=== PATIENT | female | born 1990 | race Caucasian/White ===

== ENCOUNTER → 2016-05-31 | Outpatient (CLI) | payer OTHER ==
[~2016-05-31] MED LIST: CLON1TAB3 PO
== END | disposition home or self-care (01) ==
LOC: C.PATHSPEC 17:41
PROVIDERS: ATTEND Plastic Surgery
DX: L72.0 Epidermal cyst (principal)

== ENCOUNTER → 2016-06-27 | Outpatient (CLI) | payer OTHER ==
[2016-06-27 17:27] LABS: HEPATITIS B AB POS
== END | disposition home or self-care (01) ==
LOC: C.LABBFT 12:20
PROVIDERS: ATTEND Internal Medicine
DX: Z20.5 Contact with and (suspected) exposure to viral hepatitis (principal); Z11.3 Encounter for screening for infections with a predominantly sexual mode of transmission

== ENCOUNTER → 2016-09-05 | Outpatient (CLI) | payer OTHER ==
[2016-09-08 00:33] LABS: CHLAMYDIA TRACH RNA*** NOT DETECTED (NOT DETECTED); GC (NEIS GONORRHOEAE)RNA** NOT DETECTED (NOT DETECTED)
== END | disposition home or self-care (01) ==
LOC: C.LABSPEC 17:33
PROVIDERS: ATTEND Physician Assistant
DX: Z01.419 Encounter for gynecological examination (general) (routine) without abnormal findings (principal)

== ENCOUNTER → 2016-09-05 | Outpatient (CLI) | payer OTHER | END | disposition home or self-care (01) | LOC: C.PAPS 08:11 | PROVIDERS: ATTEND Physician Assistant | DX: Z01.411 Encounter for gynecological examination (general) (routine) with abnormal findings (principal); R87.610 Atypical squamous cells of undetermined significance on cytologic smear of cervix (ASC-US) ==

== ENCOUNTER → 2017-04-02 | Outpatient (CLI) | payer OTHER ==
[2017-04-02 18:44] LABS: URINE APPEARANCE CLEAR (CLEAR); URINE BILIRUBIN NEG (NEG); URINE COLOR YELLOW; URINE NITRITE NEG (NEG); URINE SPECIFIC GRAVITY 1.021 (1.000-1.030); UROBILINOGEN NEG (NEG)
[2017-04-02 18:47] LABS: MANUAL MICROSCOPIC REQUIRED? NO; REVIEW REQ? NO
== END | disposition home or self-care (01) ==
LOC: C.LABSPEC 17:27
PROVIDERS: ATTEND Obstetrics & Gynecology
DX: O09.299 Supervision of pregnancy with other poor reproductive or obstetric history, unspecified trimester (principal); Z3A.00 Weeks of gestation of pregnancy not specified

== ENCOUNTER → 2017-04-04 | Outpatient (CLI) | payer OTHER ==
[2017-04-04 16:40] LABS: BASO % 0.3 %; BASO ABS # 0.03 K/uL (0-0.2); COMPLETE YES; EOS % 4.2 %; HEMATOCRIT 35.2 % (37-47); IG% 0.3 %; LYMPH % 19.5 %; LYMPH ABS # 2.25 K/uL (1.2-3.4); MEAN CELL VOLUME 92.6 fL (80-100); MEAN CORPUSCULAR HEMOGLOBIN 31.1 pg (25-34); MEAN CORPUSCULAR HGB CONC 33.5 g/dl (32-36); MEAN PLATELET VOLUME 10.8 fL (7.4-10.4); MONO % 7.5 %; NEUT % 68.2 %; PLATELET COUNT 276 K/uL (130-400); WHITE BLOOD COUNT 11.51 K/uL (4.8-10.8)
[2017-04-07 04:29] LABS: CHLAMYDIA TRACH RNA*** NOT DETECTED (NOT DETECTED); GC (NEIS GONORRHOEAE)RNA** NOT DETECTED (NOT DETECTED)
== END | disposition home or self-care (01) ==
LOC: C.LAB1850 15:33
PROVIDERS: ATTEND Obstetrics & Gynecology
DX: Z34.91 Encounter for supervision of normal pregnancy, unspecified, first trimester (principal); Z3A.00 Weeks of gestation of pregnancy not specified

== ENCOUNTER → 2017-05-23 | Outpatient (CLI) | payer OTHER | END | disposition home or self-care (01) | LOC: C.LAB1850 15:49 | PROVIDERS: ATTEND Obstetrics & Gynecology | DX: Z34.02 Encounter for supervision of normal first pregnancy, second trimester (principal); Z3A.00 Weeks of gestation of pregnancy not specified ==

== ENCOUNTER → 2017-08-13 | Outpatient (CLI) | payer OTHER ==
[2017-08-13 15:36] LABS: HEMATOCRIT 33.4 % (37-47); HEMOGLOBIN 11.2 g/dL (12.0-16.0)
== END | disposition home or self-care (01) ==
LOC: C.LAB1850 14:13
PROVIDERS: ATTEND Obstetrics & Gynecology
DX: Z34.02 Encounter for supervision of normal first pregnancy, second trimester (principal)

== ENCOUNTER 2020-07-10 20:04 | Inpatient (IN) ==
[2020-07-10] MEDS: LACTATED RINGER'S 1,000 ML IV PRN ×2 (21:05→23:17)
[2020-07-10] MEDS ORDERED: PENICILLIN G POTASSIUM 3 MU in DEXTROSE 5% 100 ML IV PRN (21:16)
[2020-07-10] MEDS ORDERED: OXYTOCIN 30 UNITS/500 ML BAG IV PRN ×2 (21:16→21:57)
--- NOTE | 2020-07-10 21:21 | History & Physical Report ---
Date of Service July 10, 2020 Assessment & Plan (1) : 30 y/o at 40 wga presenting with PROM, stable 1. VSS 2. Fetus cat 1 3. Labor - no s/s of active labor currently, pt very comfortable. Offered expectant management with possibility of needing augmentation vs starting augmentation, pt would like to start augmentation 4. GBS + urine, PCN started 5. Desires epidural PRN 6. Previously COVID +, outside of the window of isolation and within window that does not need to be retested. Currently asymptomatic History of Present Illness Chief Complaint: SROM Primary Care Provider: MALIA Gonzalez 30 y/o at 40 wga w/ GAIL 07/10/20 by 1st tri US inconsistent w/ LMP who presents after gush of fluid around 630pm this evening and continued LOF. +FM and rare contractions, denies VB. PNI: GBS+ urine COVID+ 1/ Rh- Past SERVICE TECH Hx: G1 2014 MAB, required D&E G2 at 38 wks G3 SAB G4 current Menarche 18, periods previously regular Last pap 10/2019 neg cytology; hx LSIL and colpo Hx chlamydia 2+ years ago and hx HPV, no other STIs Allergies Allergy/AdvReac Type Severity Reaction Status Date / Time No Known Drug Allergies Allergy Unknown Verified 07/10/20 20:27 Home Medications Medication Instructions Recorded Confirmed Type prenat.vits,kieran,ukt-byfw-eifyq 1 tab PO DAILY 12/30/18 07/10/20 History breast pump #1 ea 06/21/20 07/07/20 Rx Patient History Medical History 38 weeks gestation of Amenorrhea Encounter for anatomic survey Exposure to hepatitis C H/O cardiac murmur H/O chlamydia infection H/O human papillomavirus infection H/O miscarriage, currently 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 Mood disorder Normal labor Positive urine test exam Supervision of normal Varicella vaccination Surgical History Encounter for removal of sutures S/P dilation and curettage S/P tonsillectomy Family History Mother Attention deficit hyperactivity disorder (ADHD) Bipolar disorder Hypertension Osteoporosis Hepatitis C virus Hypercholesteremia Grandmother (Maternal) Breast cancer Diabetes Uncle Colorectal cancer Grandfather (Maternal) Colorectal cancer Father Diabetes Aunt Ovarian cancer Social History Smoking Status: Former smoker Second Hand Exposure: Yes; Hx Alcohol Use: No Hx Substance Use: No Preferred Language: French Communication Ability: Effective Director Industrial Relations Required: No Beliefs That Will Affect Care: None marital status: Single marital status details: Jey Gooden (29) [phone] Current Living Situation: Significant Other Current Living Situation Comment: apartment with FOB and daughter current occupational status: unemployed current occupation: homemaker Other Information That Helps Us Care for You: No Feels Safe at Home: Yes Safety Concerns: Feels Safe At This Time Assistive Devices: Glasses Physical Exam Constitutional: WD/WN, vitals as above Respiratory: normal respiratory effort; no respiratory distress and no labored breathing Genitourinary: OB Exam Abdomen: + vertex (confirmed by BSUS) and + estimated weight (7-8lbs) Manual OB Exam: + cervical dilation 4 cm, + cervical effacement 50%, + station high and + amniotic fluid (Grossly ruptured) nitrazine positive OB Exam Monitor Tracing: + external FHT monitor used, + external uterine monitor used (rare ctx) and + category I (140/mod/+accel/-decel) Results & Data ([facility]) Vital Signs (Past 12 Hours) Vital Signs Temp Pulse Resp BP 07/10/20 20:28 98.8 F 18 07/10/20 20:23 98.8 F 18 07/10/20 20:22 81 135/82 Laboratory Results OB Labs: Blood Type A Negative 11/21/19 Antibody Screen NEGATIVE 04/19/20 Hemoglobin 11.6 g/dL (12.0-16.0) L 04/19/20 Hematocrit 35.1 % (37-47) L 04/19/20 Mean Corpuscular Volume 90.6 fL (80-100) 11/21/19 Platelet Count 288 K/uL (130-400) 11/21/19 Rubella IgG Antibody Immune (Immune) 11/21/19 Rapid Plasma Reagin Nonreactive (Nonreactive) 11/21/19 Hepatitis B Surface Antigen Neg (Neg) 11/21/19 HIV (1&2) Ab and P24 Ag, 4th Gener Neg (Neg) 11/21/19 Glucose 1 Hour 50 gm Load 96 mg/dl (70-130) 04/19/20 OB Optional Labs: Chlamydia trachomatis RNA NOT DETECTED (NOT DETECTED) 11/21/19 Neisseria gonorrhoeae RNA NOT DETECTED (NOT DETECTED) 11/21/19 declines cf/sma declines all genetics GBS+ urine COVID+ 06/03 Diagnostic Findings Ant placenta Code Status & VTE Plan VTE Prophylaxis Plan VTE Prophylaxis will be ordered: Yes Coding Level of Care Code None Diagnoses Z34.90
[2020-07-10] MEDS ORDERED: PENICILLIN G POTASSIUM 6 MU in DEXTROSE 5% 250 ML IV ONE (21:45)
[2020-07-10 21:55] LABS: Hematocrit (blood only) 35.5 % (37-47); Hemoglobin 11.9 g/dL (12.0-16.0); Mean Corpuscular Hemoglobin 30.7 pg (25-34); Mean Corpuscular Hgb Conc 33.5 g/dL (32-36); Mean Corpuscular Volume 91.7 fL (80-100); Mean Platelet Volume 12.4 fL (7.4-10.4); Platelet Count 190 K/uL (130-400); Red Blood Count 3.87 M/uL (4.2-5.4); White Blood Count 11.54 K/uL (4.8-10.8)
[2020-07-10] MEDS ORDERED: SODIUM CHLORIDE 0.9% INJ 10 ML VIAL ONE (22:12)
[2020-07-10] MEDS ORDERED: BUPIVACAINE 0.25% 30 ML VIAL ONE (22:12)
[2020-07-10] MEDS ORDERED: ePHEDrine sulfate 50 MG/ML AMP ONE (22:12)
[2020-07-10] MEDS ORDERED: fentaNYL 2MCG/ML ROPIVACAINE 1.25MG/ML 100 ML BAG EPI ONE (22:13)
[2020-07-10] MEDS ORDERED: fentaNYL citrate 100 MCG/2 ML VIAL ONE (22:13)
[2020-07-10] MEDS ORDERED: diphenhydrAMINE 50 MG/ML VIAL IV PRN (22:26)
[2020-07-10] MEDS ORDERED: ePHEDrine sulfate 50 MG/ML AMP IV PRN (22:26)
[2020-07-10] MEDS ORDERED: ONDANSETRON INJ 2 MG/ML 2 ML VIAL IV PRN (22:26)
[2020-07-10] MEDS ORDERED: NALOXONE HCL 0.4 MG/1 ML VIAL/CARP IV PRN (22:26)
[2020-07-10] MEDS ORDERED: fentaNYL 2MCG/ML ROPIVACAINE 1.25MG/ML 100 ML BAG EPI PRN (22:26)
[2020-07-10] MEDS ORDERED: NALOXONE HCL 1 MG in SODIUM CHLORIDE 0.9% 1000ML 1,000 ML IV PRN (22:26)
--- NOTE | 2020-07-10 22:30 | Anesthesiology Consultation ---
Date of Service July 10, 2020 The patient was positive for Covid 19 in May 2020. Assessment & Plan Chart Review Chart Review: Patient NOT seen in Pre Admission Testing and Acceptable Risk for Labor Epidural Consults Requested none ASA ASA2 Proposed Anesthesia Anesthesia Type: Labor Epidural and CSE Risk / Benefits Reviewed With: PT / POA / Parent / Guardian, Accepts Plan and Informed Consent Obtained History Height/Weight Height: 5 ft 3 in Weight: 68.946 kg Allergies Allergy/AdvReac Type Severity Reaction Status Date / Time No Known Drug Allergies Allergy Unknown Verified 07/10/20 20:27 Medications Home Medications Medication Instructions Recorded Confirmed Last Taken prenat.vits,kieran,rio-tgag-zegtl 1 tab PO DAILY 12/30/18 07/10/20 07/10/20 breast pump #1 ea 06/21/20 07/07/20 Unknown Active Medications Generic Name Dose Route Start Last Admin Trade Name Freq PRN Reason Stop Dose Admin Penicillin G Potassium 6 mu/ 262 mls @ 262 mls/hr 07/10/20 21:45 07/10/20 21:51 Dextrose IV 07/10/20 22:44 262 mls/hr NOW ONE Administration Lactated Ringer's 1,000 mls @ 125 mls/hr 07/10/20 21:16 07/10/20 22:18 Lr IV 07/12/20 21:15 999 mls/hr .Q8H PRN Infusion L&D Protocol Protocol NPO Date Last Intake of Fluids: 07/10/20 Time Last Intake of Fluids: 15:00 Date Last Intake of Solids: 07/10/20 Time Last Intake of Solids: 15:00 Past Medical History Medical History 38 weeks gestation of Amenorrhea Encounter for anatomic survey Exposure to hepatitis C H/O cardiac murmur H/O chlamydia infection H/O human papillomavirus infection H/O miscarriage, currently 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 Mood disorder Normal labor Positive urine test exam Supervision of normal Varicella vaccination Exercise / Class Metabolic Activity II 4-5 Yardwork/Stairs/Walk up hill Past Family History Family History Mother Attention deficit hyperactivity disorder (ADHD) Bipolar disorder Hypertension Osteoporosis Hepatitis C virus Hypercholesteremia Grandmother (Maternal) Breast cancer Diabetes Uncle Colorectal cancer Grandfather (Maternal) Colorectal cancer Father Diabetes Aunt Ovarian cancer Past Surgical History Surgical History Encounter for removal of sutures S/P dilation and curettage S/P tonsillectomy Past Anesthesia History No Hx of Anesthesia Complications and No Family Hx of Anesthesia Complications History of PONV No Hx of PONV and No Hx of Motion Sickness Social History Smoking Status: Former smoker Hx Alcohol Use: No Hx Substance Use: No Review of Systems no chest pain or sob Physical Exam Vital Signs Last Vital Signs Temp 36.3 C L 07/10/20 22:18 Pulse 73 07/10/20 22:26 Resp 18 07/10/20 22:18 BP 119/75 07/10/20 22:18 Pulse Ox 100 07/10/20 22:26 ENMT Mouth: no TMJ abnormality Thyromental Distance: > or= 3.5 Finger Breadths Mallampati Class: II Neck normal visual inspection Respiratory normal respiratory effort Auscultation: lungs clear to auscultation bilaterally Cardiovascular Rate/Rhythm: regular rate and regular rhythm Musculoskeletal Spine: normal cervical ROM Neurologic moves all extremities Psychiatric Orientation: alert and oriented x 3 Testing Laboratory Results 07/10/20 21:39
--- NOTE | 2020-07-11 00:16 | Labor Progress Brief Note ---
Date of Service July 11, 2020 Subjective Comfortable w/ epidural per pt request Assessment & Plan (1) : 30 y/o at 40 1/7wga presenting with PROM, stable 1. VSS 2. Fetus cat 1 3. Labor - planned to start pit however unable to start yet due to staffing, will start now 4. GBS + urine, PCN started 5. Desires epidural Admission and Anticipated Discharge Date Admission Date: July 10, 2020 Physical Exam Constitutional: WD/WN, vitals as above Respiratory: normal respiratory effort; no respiratory distress and no labored breathing Genitourinary: Manual OB Exam: + cervical dilation 4 cm, + cervical effacement 50% and + station high OB Exam Monitor Tracing: + external FHT monitor used, + external uterine monitor used (q8) and + category I (140/mod/+accel/-decel) Results & Data ([facility]) Vital Signs (Past 12 Hours) Vital Signs Temp Pulse Resp BP Pulse Ox 07/11/20 00:11 58 L 100 07/11/20 00:06 67 100 07/11/20 00:01 64 96 07/11/20 00:00 16 07/10/20 23:56 61 100 07/10/20 23:51 57 L 99 07/10/20 23:46 55 L 99 07/10/20 23:45 55 L 112/62 07/10/20 23:41 56 L 98 07/10/20 23:36 56 L 99 07/10/20 23:31 58 L 98 07/10/20 23:30 16 07/10/20 23:28 56 L 105/59 L 07/10/20 23:26 56 L 99 07/10/20 23:21 56 L 99 07/10/20 23:16 64 98 07/10/20 23:15 60 99/54 L 07/10/20 23:11 60 99 07/10/20 23:06 59 L 99 07/10/20 23:01 61 99 07/10/20 23:00 18 07/10/20 22:57 65 105/56 L 07/10/20 22:56 65 100 07/10/20 22:55 66 100/53 L 07/10/20 22:54 68 103/54 L 07/10/20 22:52 68 107/57 L 07/10/20 22:51 73 99 07/10/20 22:49 63 106/74 07/10/20 22:47 65 108/65 07/10/20 22:46 70 99 07/10/20 22:45 64 106/61 07/10/20 22:43 69 131/79 07/10/20 22:41 78 125/73 100 07/10/20 22:39 85 133/79 07/10/20 22:36 72 100 07/10/20 22:31 69 100 07/10/20 22:26 73 100 07/10/20 22:21 71 99 07/10/20 22:18 97.3 F L 74 18 119/75 07/10/20 22:16 72 98 07/10/20 20:28 98.8 F 18 07/10/20 20:23 98.8 F 18 07/10/20 20:22 81 135/82 Coding Level of Care Code None Diagnoses Z34.90
--- NOTE | 2020-07-11 02:58 | Delivery Summary ---
Vaginal Delivery Summary Date of Service July 11, 2020 PREOPERATIVE DIAGNOSIS: 1. Single intrauterine at 40 1/7 wga 2. Prelabor rupture of membranes 3. GBS + POSTOPERATIVE DIAGNOSIS: 1. Single intrauterine at 40 1/7 wga 2. Prelabor rupture of membranes 3. GBS + 4. Delivered PROCEDURE: 1. Normal spontaneous vaginal delivery. SURGEON: Brittany Nevarez MD ANESTHESIA: Epidural. ESTIMATED BLOOD LOSS: 300 mL COMPLICATIONS: None. CONDITION: Stable. INDICATIONS: 30 y/o at 40 wga w/ GAIL 07/10/20 presented after spontaneous rupture of membranes. +FM; denies ctx or VB. She was started on penicillin for known GBS+ status by urine. She received an epidural for pain control. She did require pitocin augmentation and very rapidly progressed to complete and desired to push FINDINGS: A viable male , weight pending, with Apgars of 9 and 9 at 1 and 5 minutes respectively. SPECIMEN: Cord blood OPERATIVE REPORT: The patient progressed to 10 cm, 100% effaced and +2 station, pushed over intact perineum with anesthesia to deliver a viable male infant, weight and Apgars as above. Head of delivered in SAM position. No nuchal cord was present. Body and shoulders were delivered without difficulty. was delivered to maternal abdomen and nursing staff. Delayed cord clamping was performed for 60 seconds. Cord was clamped and cut. Cord blood was obtained. Placenta delivered spontaneously intact with 3-vessel cord. IV oxytocin and fundal massage were given for excellent hemostasis. Vagina, cervix, perineum, and placenta were inspected. A hemostatic first degree laceration was noted and not needed to be repaired. Sponge and needle counts correct x2. No sponges were left behind. Mother and stable in immediate period. Vaginal Delivery Summary and 1st Degree LAC [facility] [place] Vaginal Delivery Charge Vaginal Delivery Codes: 34796 global code for the antepartum, delivery, and post- Delivery Type Details: and 1st Degree LAC
[2020-07-11] MEDS ORDERED: OXYTOCIN 30 UNITS/500 ML BAG IV PRN (03:07)
[2020-07-11] MEDS ORDERED: bisacodyL 10 MG SUPP PR PRN (03:07)
[2020-07-11] MEDS ORDERED: BENZOCAINE 20% AER SPR 82.5 GM CAN EXT PRN (03:07)
[2020-07-11] MEDS ORDERED: DIPHTHERIA/TETANUS/PERTUSSIS 0.5 ML SYR/VIAL IM ONE (03:07)
[2020-07-11] MEDS ORDERED: HYDROCORTISONE ACETATE 25 MG SUPP PR PRN (03:07)
[2020-07-11] MEDS ORDERED: SUPERCREAM 0.870% 15 GM JAR EXT PRN (03:07)
[2020-07-11] MEDS ORDERED: IBUPROFEN 600 MG TAB PO ONE (03:09)
[2020-07-11] MEDS: PRENATAL VITAMIN 1 TAB PO SCH (08:59)
[2020-07-11] MEDS: DOCUSATE SODIUM 100 MG CAP PO SCH ×2 (08:59→20:33)
[2020-07-11] MEDS: FERROUS SULFATE 325 MG TAB PO SCH (08:59)
[2020-07-11] MEDS: IBUPROFEN 600 MG TAB PO PRN ×3 (08:59→23:32)
--- NOTE | 2020-07-11 09:20 | Anesthesia Procedure Note ---
Date of Service July 11, 2020 Anesthesia Post Epidural Note Vital Signs Vital Signs: Temp Pulse Resp BP Pulse Ox 36.3 C L 65 20 115/67 98 07/11/20 05:00 07/11/20 05:00 07/11/20 05:00 07/11/20 05:00 07/11/20 05:00 Pain Intensity Head: Pain Intensity: 1 Notes Mental Status: alert / awake / arousable and participated in evaluation Nausea / Vomiting: adequately controlled Pain: adequately controlled Airway Patency, RR, SpO2: stable & adequate BP & HR: stable & adequate Hydration State: stable & adequate Neuraxial Anesthesia: was administered and sensory block is resolving Anesthetic Complications: no major complications apparent Epidural: Removed without complications and With tip intact
[2020-07-11] MEDS: ACETAMINOPHEN 325 MG TAB PO PRN ×2 (11:37→19:37)
[2020-07-12] MEDS: ACETAMINOPHEN 325 MG TAB PO PRN (02:27)
--- NOTE | 2020-07-12 06:03 | Obstetrical Progress Note ---
Date of Service <Jase Durán MD - Last Filed: 07/12/20 07:01> July 12, 2020 Assessment & Plan <Jase Durán MD - Last Filed: 07/12/20 07:01> (1) state: 30 y/o s/p at 40w1d, PPD1. A neg. Ab screen neg. Rubella immune. GBS+ urine, s/p PCN. - pain is moderate and lochia moderate-large - - continue routine care - dispo home today. will review care instructions - f/u in office at 6 wks (2) Need for rhogam due to Rh negative mother: - needs rhogam. baby is O+ Subjective <Jase Durán MD - Last Filed: 07/12/20 07:01> Ambulation: ambulating normally Voiding: no voiding problems Passing Gas:: Yes Diet Tolerance:: regular diet Lochia:: Moderate (has to change pad during every urination. some slowing down. initially rated large) Feeding Type:: breast feeding (didn't eat from 10pm to 6am. gassy. feeding now) Current Pain Level(1-10): 5 (worsened by nursing mostly. slight improvement) Prefers earlier dispo. Review of Systems Denies fever, chills, sweats Denies shortness of breath, chest pain, palpitations. mild nipple soreness Denies dysuria. Denies headache or changes in vision. Denies nausea/vomiting. Denies numbness, tingling, weakness. Physical Exam <Jase Durán MD - Last Filed: 07/12/20 07:01> General: Alert, oriented. No acute distress. Cardiac: Regular rate and rhythm, no murmurs/rubs/gallops. Respiratory: Clear to auscultation bilaterally, no wheezes/rales/rhonchi. No respiratory distress. Abdomen: , soft, nontender. Uterus: Uterine fundus firm, palpable 2cm below umbilicus. Lower Extremities: No lower extremity edema or swelling. No deep calf pain. Deepti's negative bilaterally. Results & Data ([facility]) <Jase Durán MD - Last Filed: 07/12/20 07:01> Vital Signs (Past 12 Hours) Vital Signs Temp Pulse Pulse Resp BP BP Pulse Ox 02/14/21 23:15 36.7 C 68 16 118/72 98 07/11/20 20:10 36.7 C 74 18 130/77 07/11/20 19:28 36.7 C 74 16 130/77 Medications Administered <Brittany Nevarez MD - Last Filed: 07/12/20 07:12> Co-Signing Physician Notes Resident Physician Supervision Note: I interviewed and examined the patient. Discussed with Dr. Durán and agree with findings and plan as documented in the note. Any exceptions or clarifications are listed here: PP1 s/p , doing well. Meeting all pp milestones. VSS since coming out of immediate pp period. Desires d/c home, stable for d/c. f/u 6 wk pp visit Documented By: Brittany Nevarez MD Resident Activity Tracking <Jase Durán MD - Last Filed: 07/12/20 07:01> Resident Involvement: Resident Care Provided Care Provided: OB Delivery
[2020-07-12] MEDS: PRENATAL VITAMIN 1 TAB PO SCH (07:50)
[2020-07-12] MEDS: FERROUS SULFATE 325 MG TAB PO SCH (07:50)
[2020-07-12] MEDS: IBUPROFEN 600 MG TAB PO PRN ×2 (07:51→11:18)
[2020-07-12] MEDS: DOCUSATE SODIUM 100 MG CAP PO SCH (07:51)
[2020-07-12] MEDS ORDERED: bisacodyL 5 MG TABEC PO SCH (20:00)
== END 2020-07-12 13:15 | disposition home or self-care (01) | DRG 807 ==
LOC: OPB 20:04 → 4S1 20:05 → 4S2 07-11 05:00